=== PATIENT | female | born 1980 | race Caucasian/White ===

== ENCOUNTER 2022-03-19 16:18 | Emergency (ER) | payer BC ==
[2022-03-19] MEDS ORDERED: Fluconazole 150 MG Tab PO ONE (16:43)
== END 2022-03-19 17:15 | disposition home or self-care (01) ==
LOC: LB.ED 16:18
DX: B37.9 Candidiasis, unspecified (principal); L30.4 Erythema intertrigo; Z88.1 Allergy status to other antibiotic agents; Z88.2 Allergy status to sulfonamides; Z88.0 Allergy status to penicillin
CPT/HCPCS: 99281; 99282; A9270-GY

== ENCOUNTER 2023-02-25 09:17 | Emergency (ER) | payer BC ==
[2023-02-25 09:46] LABS: BASOPHILS ABSOLUTE AUTO 0.03 K/uL (0.02-0.10); BASOPHILS PERCENT AUTO 0.4 % (0.0-0.5); EOSINOPHILS ABSOLUTE AUTO 0.15 K/uL (0.04-0.40); EOSINOPHILS PERCENT AUTO 1.8 % (1.0-5.0); HEMATOCRIT 42.4 % (37.0-47.0); HEMOGLOBIN 13.9 g/dL (11.5-16.5); LYMPHOCYTES ABSOLUTE AUTO 2.35 K/uL (1.50-4.00); LYMPHOCYTES PERCENT AUTO 28.1 % (20.0-40.0); MEAN CORPUSCULAR HEMOGLOBIN 29.7 pg (27.0-32.0); MEAN CORPUSCULAR HGB CONC 32.8 g/dL (31.0-35.0); MEAN CORPUSCULAR VOLUME 91 fL (76-96); MEAN PLATELET VOLUME 9.5 fL (6.0-10.0); MONOCYTES ABSOLUTE AUTO 0.62 K/uL (0.20-0.80); MONOCYTES PERCENT AUTO 7.4 % (3.0-10.0); NEUTROPHILS ABSOLUTE AUTO 5.22 K/uL (2.00-7.50); NEUTROPHILS PERCENT AUTO 62.3 % (45.0-70.0); PLATELET COUNT,PLT 289 K/uL (150-500); RED BLOOD CELL COUNT 4.68 M/uL (3.80-5.80); RED CELL DISTRIBUTION WIDTH 13.1 % (11.0-16.0); WHITE BLOOD CELL COUNT,WBC 8.4 K/uL (4.0-11.0)
[2023-02-25] MEDS ORDERED: Azithromycin 250 MG Tab ONE (10:00)
[2023-02-25] MEDS ORDERED: predniSONE 10 MG Tab ONE (10:00)
[2023-02-25 10:07] LABS: A/G RATIO 0.9 (0.8-2.0); ALANINE AMINOTRANSFERASE,ALT 45 U/L (12-78); ALBUMIN 3.6 g/dL (3.4-5.0); ALKALINE PHOSPHATASE 61 U/L (46-116); ANION GAP 8.6 mmol/L (5.0-15.0); ASPARTATE AMNIOTRANSFERASE,AST 21 U/L (15-37); BILIRUBIN TOTAL 0.4 mg/dL (0.0-1.0); BLOOD UREA NITROGEN,BUN 8 mg/dL (8-26); BUN/CREATININE RATIO 13.1 (6-25); CALCIUM 8.8 mg/dL (8.5-10.1); CARBON DIOXIDE,CO2 31.5 mmol/L (21.0-32.0); CHLORIDE,CL 104 mmol/L (98-107); CREATININE 0.61 mg/dL (0.55-1.02); ESTIMATED GFR 115 mL/min (>60); GLUCOSE RANDOM 101 mg/dL (74-100); POTASSIUM,K 4.1 mmol/L (3.5-5.1); PROTEIN TOTAL,TP 7.7 g/dL (6.4-8.2); SODIUM,NA 140 mmol/L (136-145)
== END 2023-02-25 10:34 | disposition home or self-care (01) ==
LOC: LB.ED 09:17
DX: J21.9 Acute bronchiolitis, unspecified (principal); Z88.0 Allergy status to penicillin; Z88.1 Allergy status to other antibiotic agents; Z88.6 Allergy status to analgesic agent; Z88.8 Allergy status to other drugs, medicaments and biological substances; Z79.899 Other long term (current) drug therapy
CPT/HCPCS: 36415; 71045; 80053; 85025; 99283; A9270-GY; J7512; U0002